=== PATIENT | female | born 1970 | race Caucasian/White ===

== ENCOUNTER 2021-03-24 15:31 | Emergency (ER) | payer OTHER ==
[2021-03-24] MEDS ORDERED: EC-NAPROSYN500 MG PO (18:36)
[2021-03-24] MEDS ORDERED: Voltaren Gel 1 % TOP (18:36)
[2021-03-24] MEDS ORDERED: Flexeril PO (18:36)
== END 2021-03-24 18:53 | disposition home or self-care (01) ==
LOC: ER1 15:31
DX: M54.5 Low back pain (principal); E11.9 Type 2 diabetes mellitus without complications; Z79.4 Long term (current) use of insulin; I10 Essential (primary) hypertension; E03.9 Hypothyroidism, unspecified
CPT/HCPCS: 72131; 96372; 96374; 99284; J1885

== ENCOUNTER 2021-06-30 10:30 | Inpatient (IN) | payer OTHER ==
[~2021-06-30] VITALS: Ht 160 cm; Wt 85.7 kg
[~2021-06-30 10:30] MED LIST: EC-NAPROSYN500 MG PO; Flexeril PO; Voltaren Gel 1 % TOP
[2021-06-30 12:56] LABS: HEMOGLOBIN 12.9 gm/dl (12.3-15.3); RED BLOOD COUNT 4.24 M/UL (4.00-5.10); WHITE BLOOD COUNT 3.7 K/UL (4.5-11.0)
[2021-06-30] MEDS ORDERED: ZYLOPRIM 300 M300 MG PO (17:41)
[2021-06-30] MEDS ORDERED: NEURONTIN800 MG PO (17:41)
[2021-06-30] MEDS ORDERED: ALBUTEROL2.5 MG/3 M INH (17:41)
[2021-06-30] MEDS ORDERED: ZYRTEC10 MG PO (17:42)
[2021-06-30] MEDS ORDERED: ADVAIR 250-501 EACH INH (17:45)
[2021-06-30] MEDS ORDERED: DRISDOL1250 MCG PO (17:45)
[2021-06-30] MEDS ORDERED: DIABETA 5 MG TAB5 MG PO (17:46)
[2021-06-30] MEDS ORDERED: LAMICTAL25 MG PO (17:46)
[2021-06-30] MEDS ORDERED: LANTUS SOL100 UNIT/1 SC (17:46)
[2021-06-30] MEDS ORDERED: HYDROCHLOROTHIA25 MG PO (17:46)
[2021-06-30] MEDS ORDERED: PRAVASTATIN SOD40 MG PO (17:47)
[2021-06-30] MEDS ORDERED: TOPROL XL50 MG PO (17:47)
[2021-06-30] MEDS ORDERED: ZESTRIL20 MG PO (17:47)
[2021-06-30] MEDS ORDERED: KLOR-CON 1010 MEQ PO (17:47)
[2021-06-30] MEDS ORDERED: SYNTHROID25 MCG PO (17:47)
[2021-06-30] MEDS ORDERED: HUMALOG100 UNIT/3 SC (17:48)
[2021-06-30] MEDS ORDERED: EFFEXOR XR150 MG PO (17:48)
[2021-06-30] MEDS ORDERED: TOPIRAMATE25 MG PO (17:49)
[2021-06-30] MEDS ORDERED: OMEPRAZOLE20 MG PO (17:49)
[2021-06-30] MEDS ORDERED: VENTOLIN HFA 66.7 GM INH (17:49)
[2021-06-30] MEDS ORDERED: IBU800 MG PO (17:50)
[2021-06-30] MEDS ORDERED: FLONASE ALLER15.8 ML (17:52)
[2021-07-02 04:38] LABS: HEMOGLOBIN 11.2 gm/dl (12.3-15.3); RED BLOOD COUNT 3.97 M/UL (4.00-5.10)
[2021-07-02 04:44] LABS: WHITE BLOOD COUNT 1.9 K/UL (4.5-11.0)
[2021-07-03 05:27] LABS: HEMOGLOBIN 11.9 gm/dl (12.3-15.3); RED BLOOD COUNT 4.06 M/UL (4.00-5.10)
[2021-07-03 05:29] LABS: WHITE BLOOD COUNT 4.4 K/UL (4.5-11.0)
[2021-07-04 08:10] LABS: HEMOGLOBIN 12.2 gm/dl (12.3-15.3); RED BLOOD COUNT 4.14 M/UL (4.00-5.10)
[2021-07-05 18:33] LABS: HEMOGLOBIN 13.1 gm/dl (12.3-15.3); RED BLOOD COUNT 4.33 M/UL (4.00-5.10)
[2021-07-05 18:43] LABS: WHITE BLOOD COUNT 14.1 K/UL (4.5-11.0)
[2021-07-05 21:10] LABS: BUN/CREATININE RATIO 37 (0-10)
[2021-07-06 05:13] LABS: HEMOGLOBIN 13.9 gm/dl (12.3-15.3); RED BLOOD COUNT 4.49 M/UL (4.00-5.10); WHITE BLOOD COUNT 15.8 K/UL (4.5-11.0)
[2021-07-07 12:42] LABS: BUN/CREATININE RATIO 50 (0-10); HEMOGLOBIN 12.9 gm/dl (12.3-15.3)
[2021-07-07 12:56] LABS: RED BLOOD COUNT 4.02 M/UL (4.00-5.10); WHITE BLOOD COUNT 10.8 K/UL (4.5-11.0)
[2021-07-08 05:36] LABS: HEMOGLOBIN 11.6 gm/dl (12.3-15.3); WHITE BLOOD COUNT 8.8 K/UL (4.5-11.0)
[2021-07-08 05:38] LABS: RED BLOOD COUNT 3.56 M/UL (4.00-5.10)
[2021-07-08 06:38] LABS: BUN/CREATININE RATIO 49 (0-10)
[2021-07-09 10:31] LABS: HEMOGLOBIN 12.6 gm/dl (12.3-15.3); WHITE BLOOD COUNT 9.9 K/UL (4.5-11.0)
[2021-07-09 10:36] LABS: RED BLOOD COUNT 4.05 M/UL (4.00-5.10)
[2021-07-09 10:46] LABS: BUN/CREATININE RATIO 35 (0-10)
--- NOTE | 2021-07-09 22:58 | NUR ---
2129: PATIENT EXPERIENCED AN EPISODE IN WHICH SHE DESATURATED TO 78% ON 100%FiO2 ON VETILATOR. RESPIRATOR THERAPIST RAUL WAS CONTACETED. UPON ARRIVAL WE BAGGED THE PATIENT AND SHE WAS SATURATING UP TO 91% AT TIMES. DR. BROWN WAS CONTACTED DURING THIS TIME (2139) AND STATED TO BAG THE PATINENT AND INCREASE THE PEEP TO 20 AND RATE TO 30. DESPITE THESE EFFORTS THE SATUERATION WOULD NOT INCREASE ABOVE 86. THE DECISION WAS THEN MADE BY DR BROWN TO INCREASE THE ZEMURON GTT AND PRONE THE PATIENT AT 2229. THE PATIENT IS CURRENTLY (2313) PRONED ON 100%FIO2 WITH A PEEP OF 20 AND RATE OF 30. OXYGEN SATURATION IS 87% THE MOTHER OF THE PATINENT WAS CONTACTED AT 2309 TO INFORM HER OF THE CHANGE IN PATINET STATUS.
[2021-07-10 04:59] LABS: HEMOGLOBIN 11.6 gm/dl (12.3-15.3); RED BLOOD COUNT 3.7 M/UL (4.00-5.10); WHITE BLOOD COUNT 10.3 K/UL (4.5-11.0)
--- NOTE | 2021-07-10 11:46 | NUR ---
1015: PT TURNED TO SUPINE POSITION FROM PRONE POSITION, NO PRESSURE INJURIES NOTED ON KNEES, SHOULDERS, FEET, OR FACE. PT TOLERATED WELL, ET TUBE IS AT 23 AT THE LIP.
[2021-07-11 10:08] LABS: HEMOGLOBIN 12.1 gm/dl (12.3-15.3); RED BLOOD COUNT 3.84 M/UL (4.00-5.10)
[2021-07-11 10:09] LABS: WHITE BLOOD COUNT 14.3 K/UL (4.5-11.0)
[2021-07-11 14:14] LABS: ACINETOBACTER BAUMANNII Not Detected (Negative); CANDIDA ALBICANS Not Detected (Negative); CANDIDA KRUSEI Not Detected (Negative); CANDIDA TROPICALIS Not Detected (Negative); ENTEROCOCCUS Not Detected (Negative); ESCHERICHIA COLI Not Detected (Negative); HAEMOPHILUS INFLUENZAE Not Detected (Negative); KLEBSIELLA OXYTOCA Not Detected (Negative); KLEBSIELLA PNEUMONIAE Not Detected (Negative); KPC-CARBAPENEM-RESISTANCE GENE Not Detected (Negative); PROTEUS Not Detected (Negative); PSEUDOMONAS AERUGINOSA Not Detected (Negative); SERRATIA MARCESANS Not Detected (Negative); STAPHYLOCOCCUS AUREUS Not Detected (Negative); STREP AGALACTIAE (GROUP B) Not Detected (Negative); STREP PYOGENES (GROUP A) Not Detected (Negative); STREPTOCOCCUS Not Detected (Negative); vanA/B (VANCOMYCIN RESIST GENE Not Detected (Negative)
[2021-07-11 14:16] LABS: STAPHYLOCOCCUS DETECTED (Negative); mecA (METHICILLIN RESIST GENE DETECTED (Negative)
--- NOTE | 2021-07-11 15:02 | NUR ---
1235- PT TURNED TO SUPINE POSITION, NOSE HAS MULTIPLE PRESSURE INJURIES, OPEN AREA ON NECK/CHIN, DTI ON LEFT SHOULDER, PT FACE IS SWOLLEN WITH 4+ PITTING EDEMA, TOLERATED TURN WELL.
[2021-07-12 05:21] LABS: RED BLOOD COUNT 3.58 M/UL (4.00-5.10); WHITE BLOOD COUNT 12.2 K/UL (4.5-11.0)
[2021-07-12 05:41] LABS: BUN/CREATININE RATIO 29 (0-10)
[2021-07-13 09:29] LABS: HEMOGLOBIN 11.4 gm/dl (12.3-15.3); RED BLOOD COUNT 3.65 M/UL (4.00-5.10); WHITE BLOOD COUNT 11.6 K/UL (4.5-11.0)
[2021-07-13 09:52] LABS: BUN/CREATININE RATIO 28 (0-10)
[2021-07-14 05:18] LABS: HEMOGLOBIN 11.9 gm/dl (12.3-15.3); RED BLOOD COUNT 3.76 M/UL (4.00-5.10)
[2021-07-14 05:43] LABS: BUN/CREATININE RATIO 24 (0-10)
== END 2021-07-14 17:58 | disposition expired | DRG 870 ==
LOC: ER1 10:30 → CCU 14:24 → CDU 14:24 → PROG CARE 07-02 07:20 → CCU 07-02 13:11
PROVIDERS: Internal Medicine; Internal Medicine Pulmonary Disease; Physician Assistant Medical; Surgery; ADMIT Internal Medicine Infectious Disease
PROC: XW033H5 Introduction of Tocilizumab into Peripheral Vein, Percutaneous Approach, New Technology Group 5 (ICD-10-PCS; principal; 2021-06-30)
PROC: 3E0333Z Introduction of Anti-inflammatory into Peripheral Vein, Percutaneous Approach (ICD-10-PCS; 2021-06-30)
PROC: 3E033XZ Introduction of Vasopressor into Peripheral Vein, Percutaneous Approach (ICD-10-PCS; 2021-06-30)
PROC: XW033E5 Introduction of Remdesivir Anti-infective into Peripheral Vein, Percutaneous Approach, New Technology Group 5 (ICD-10-PCS; 2021-06-30)
PROC: 0DH63UZ Insertion of Feeding Device into Stomach, Percutaneous Approach (ICD-10-PCS; 2021-06-30)
PROC: 3E0G76Z Introduction of Nutritional Substance into Upper GI, Via Natural or Artificial Opening (ICD-10-PCS; 2021-06-30)
PROC: 8E0ZXY6 Isolation (ICD-10-PCS; 2021-06-30)
PROC: 5A0945A Assistance with Respiratory Ventilation, 24-96 Consecutive Hours, High Flow/Velocity Cannula (ICD-10-PCS; 2021-07-01)
PROC: 5A1955Z Respiratory Ventilation, Greater than 96 Consecutive Hours (ICD-10-PCS; 2021-07-02)
PROC: 0BH17EZ Insertion of Endotracheal Airway into Trachea, Via Natural or Artificial Opening (ICD-10-PCS; 2021-07-02)
DX: A41.1 Sepsis due to other specified staphylococcus (principal); U07.1 COVID-19; J12.82 Pneumonia due to coronavirus disease 2019; R65.21 Severe sepsis with septic shock; J80 Acute respiratory distress syndrome; J15.212 Pneumonia due to Methicillin resistant Staphylococcus aureus; E72.51 Non-ketotic hyperglycinemia; N17.9 Acute kidney failure, unspecified; E87.4 Mixed disorder of acid-base balance; Z51.5 Encounter for palliative care; Z66 Do not resuscitate; E11.42 Type 2 diabetes mellitus with diabetic polyneuropathy; E66.01 Morbid (severe) obesity due to excess calories; G83.9 Paralytic syndrome, unspecified; L89.151 Pressure ulcer of sacral region, stage 1; L89.812 Pressure ulcer of head, stage 2; E87.5 Hyperkalemia; I10 Essential (primary) hypertension; M79.7 Fibromyalgia; J45.998 Other asthma; Z79.4 Long term (current) use of insulin; Z90.49 Acquired absence of other specified parts of digestive tract; Z88.8 Allergy status to other drugs, medicaments and biological substances; Z88.1 Allergy status to other antibiotic agents; Z68.33 Body mass index [BMI] 33.0-33.9, adult; Z82.49 Family history of ischemic heart disease and other diseases of the circulatory system; Z83.3 Family history of diabetes mellitus
CPT/HCPCS: ECHO; 31500; 36415; 36600; 71045; 80048; 80053; 80202; 82009; 82550; 82553; 82803; 82962; 83605; 83615; 83874; 83880; 83930; 84132; 84484; 85025; 85379; 86140; 87040; 87070; 87077; 87150; 87186; 87205; 93005; 93306; 94002; 94003; 94640; 94660; 94664; 94760; 96374; 99285; C9113; J0456; J0696; J1100; J1650; J1940; J2060; J2248; J2250; J2543; J2704; J3010; J3370; J3480; J7030; J7050; J7070; U0002